=== PATIENT | male | born 1950 | race Caucasian/White ===

== ENCOUNTER → 2019-11-29 | Outpatient (REF) | payer BC ==
[~2019-11-29] MED LIST: AMIO100T5 PO; BENA25CA4 PO; COLA100C5 PO; DRON40TA PO; ELIQ2.5T PO; FINA5TAB2 PO; FURO40TA2 PO; MIDO5TA PO; MONT10TA4 PO; MULTCAP PO; OMEP-221 PO; PRAV20TA2 PO; SPIR-10 PO; TADA5TAB PO; VALT500T PO
[2020-02-17 09:23] LABS: CHOLESTEROL LEVEL 186 MG/DL (<200); CHOLESTEROL RISK RATIO 4.769 (<5); FREE T4 1.23 NG/DL (0.76-1.46); HDL CHOLESTEROL 39 MG/DL (>40); HEMOGLOBIN A1c 5.6 %; LDL CHOLESTEROL 109 MG/DL (<100); NON-HDL-C 147 MG/DL; THYROGLOBULIN ANTIBODY < 15.0 U/ML (<60.0); TRIGLYCERIDES LEVEL 191 MG/DL (<150)
== END ==
LOC: M LAB REF 12:46
PROVIDERS: ATTEND Internal Medicine Endocrinology, Diabetes & Metabolism
DX: E21.3 Hyperparathyroidism, unspecified (principal); E04.2 Nontoxic multinodular goiter; E78.00 Pure hypercholesterolemia, unspecified